=== PATIENT | male | born 1980 | race Caucasian/White ===

== ENCOUNTER 2017-02-26 06:21 | Day surgery (SDC) | payer OTHER ==
[~2017-02-26 06:21] MED LIST: Lactated Ringers 1,000 ML IV SCH; ceFAZolin 2 GM in Premix Bag 1 BAG IV SCH
[2017-02-26] MEDS ORDERED: Ondansetron 4 MG/2 ML SDV ONE (07:23)
[2017-02-26] MEDS ORDERED: Midazolam 1 MG/ML 2 ML SDV ONE (07:23)
[2017-02-26] MEDS ORDERED: Propofol 200 MG/20 ML SDV ONE (07:23)
[2017-02-26] MEDS ORDERED: fentaNYL 100 MCG/2 ML SDV ONE (07:23)
[2017-02-26] MEDS ORDERED: Dexamethasone 4 MG/ML 5 ML MDV ONE (07:23)
--- NOTE | 2017-02-26 07:27 | PCM.PREANE ---
Preanesthetic Assessment - Anesthesia/Transfusion/Family Hx Anesthesia History: No Prior Anesthesia Family History of Anesthesia Reaction: No Transfusion History: No Prior Transfusion(s) - Review of Systems General: No Symptoms Pulmonary: No Symptoms Cardiovascular: No Symptoms Gastrointestinal: No Symptoms Neurological: No Symptoms Other: Reports: None - Physical Assessment NPO Status Date: 02/25/17 NPO Status Time: 20:00 O2 Sat by Pulse Oximetry: 97 Respiratory Rate: 18 Vital Signs: Last Vital Signs Temp 36.6 C 02/26/17 06:45 Pulse 70 02/26/17 06:45 Resp 18 02/26/17 06:45 BP 123/80 02/26/17 06:45 Pulse Ox 97 02/26/17 06:45 Height: 1.91 m Weight: 124.738 kg ASA Class: 2 Mental Status: Alert & Oriented x3 Airway Class: Mallampati = 1 Dentition: Reports: Normal Dentition ROM/Head Extension: Full Lungs: Clear to Auscultation, Normal Respiratory Effort Cardiovascular: Regular Rate, Regular Rhythm - Allergies Allergies/Adverse Reactions: Allergies Allergy/AdvReac Type Severity Reaction Status Date / Time No Known Allergies Allergy Verified 02/22/17 11:27 - Anesthesia Plan Pre-Op Medication Ordered: None - Acknowledgements Anesthesia Type Planned: General Anesthesia Pt an Appropriate Candidate for the Planned Anesthesia: Yes Alternatives and Risks of Anesthesia Discussed w Pt/Guardian: Yes Pt/Guardian Understands and Agrees with Anesthesia Plan: Yes Additional Comments: PMH: allergic rhinitis and history of hypertension (on no meds for htn now) PreAnesthesia Questionnaire - Past Health History Medical/Surgical History: Denies Medical/Surgical History Gastrointestinal History: Reports: None Musculoskeletal History: Reports: Back Pain, Chronic, Fracture, Neck Pain, Chronic Other Musculoskeletal History: states hx of multiple fx Neurological History: Reports: Headaches, Chronic Endocrine/Metabolic History: Reports: Obesity/BMI 30+ - Infectious Disease History Infectious Disease History: Reports: Chicken Pox, Shingles - Past Surgical History Musculoskeletal Surgical History: Reports: None - SUBSTANCE USE Smoking Status *Q: Never Smoker Second Hand Smoke Exposure: No Days Per Week of Alcohol Use: 0 Recreational Drug Use History: No - HOME MEDS Home Medications: Home Meds . [No Known Home Meds] 02/22/17 [History] - CURRENT (IN HOUSE) MEDS Current Meds: Current Medications Hydrocodone Bitart/Acetaminophen ([place] 325-10 Mg) 1 - 2 tab PO Q4H PRN PRN Reason: Pain Cefazolin Sodium/Dextrose 2 gm (/ Premix) 50 mls @ 100 mls/hr IV ONCALL ISELA Lactated Ringer's (Ringers, Lactated) 1,000 mls @ 100 mls/hr IV ASDIRECTED ISELA
[2017-02-26] MEDS ORDERED: HYDROmorphone 2 MG/ML Syringe ONE (07:48)
[2017-02-26] MEDS ORDERED: Acetaminophen/HYDROcodone 325-10 MG Tab PO PRN (08:00)
[2017-02-26] MEDS ORDERED: Bupivacaine 0.25% 10 ML SDV ONE (08:37)
[2017-02-26] MEDS ORDERED: Ketorolac 30 MG/ML SDV ONE (09:46)
--- NOTE | 2017-02-26 10:01 | PCM.OPNOTE ---
- General Post-Op/Procedure Note Date of Surgery/Procedure: 02/26/17 Operative Procedure(s): Repair left distal biceps tendon Post-Op Diagnosis: Left distal biceps tendon rupture Anesthesia Technique: General ET Tube Primary Surgeon: Candace Swain [employer] Instructor: Lyle Metcalf [employer] Instructor: Miguel Ángel Brody in mLs: 20 Condition: Good Free Text/Narrative:: tt=0 min #[id number]
[2017-02-26] MEDS: fentaNYL 100 MCG/2 ML SDV IVPUSH PRN ×3 (10:10→10:28)
--- NOTE | 2017-02-26 10:23 | PCM.POSTAN ---
POST ANESTHESIA ASSESSMENT - MENTAL STATUS Mental Status: Alert, Oriented - RESPIRATORY Respiratory Status: Respiratory Rate WNL, Airway Patent, O2 Saturation Stable - CARDIOVASCULAR CV Status: Pulse Rate WNL, Blood Pressure Stable - GASTROINTESTINAL GI Status: No Symptoms - PAIN Pain Score: 0 - POST OP HYDRATION Hydration Status: Adequate & Stable
[2017-02-26] MEDS ORDERED: diphenhydrAMINE 25 MG Cap PO ONE (11:14)
[2017-02-26] MEDS ORDERED: HYDROmorphone 2 MG/ML Syringe IVPUSH ONE (11:15)
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
[2017-02-26] MEDS ORDERED: diphenhydrAMINE 50 MG Cap PO ONE (12:00)
--- NOTE | 2017-02-26 12:23 | CR ---
EXAMINATION: Left elbow HISTORY: Biceps tendon repair COMPARISON: 02/21/2017 TECHNIQUE: Single view FINDINGS/IMPRESSION: Operative control films demonstrate instrumentation projecting over the radial t uberosity with changes secondary to distal biceps tendon repair.
[2017-02-26 13:36] VITALS: BP 142/87
== END 2017-02-26 13:20 | disposition home or self-care (01) ==
LOC: MW.SDS 06:21
PROVIDERS: ATTEND Orthopaedic Surgery
DX: S46.212A Strain of muscle, fascia and tendon of other parts of biceps, left arm, initial encounter (principal); M50.90 Cervical disc disorder, unspecified, unspecified cervical region; I10 Essential (primary) hypertension; E66.9 Obesity, unspecified; Z68.34 Body mass index [BMI] 34.0-34.9, adult
CPT/HCPCS: 24342; 76000; A9270; C1776; J1100; J1170; J1885; J2250; J2405; J3010; J7120; 01710; J2704